=== PATIENT | female | born 1985 | race Caucasian/White ===

== ENCOUNTER 2017-04-12 12:56 | Inpatient (IN) | payer OTHER ==
[2017-04-12] MEDS ORDERED: OXYTOCIN 30 UNITS/LR 500 ML IV (13:02)
[2017-04-12] MEDS ORDERED: LIDOCAINE 1% (MPF) 30 ML INJ (13:06)
[2017-04-12] MEDS ORDERED: METHYLERGONOVINE 0.2 MG INJ IM (13:30)
[2017-04-12] MEDS ORDERED: LIDOCAINE 1% (MPF) 30 ML INJ INJ (13:30)
[2017-04-12] MEDS ORDERED: HYDROCODONE/APAP (5/325) TAB PO (13:30)
[2017-04-12] MEDS ORDERED: MISOPROSTOL 200 MCG TAB PR (13:30)
[2017-04-12] MEDS ORDERED: CARBOPROST 250 MCG INJ IM (13:30)
[2017-04-12] MEDS: LACTATED RINGER'S 1,000 ML IV (13:44)
[2017-04-12] MEDS: OXYTOCIN 30 UNITS/LR 500 ML IV ×2 (13:50→18:41)
[2017-04-12] MEDS: IBUPROFEN 600 MG TAB PO ×2 (14:15→23:44)
[2017-04-12 15:33] LABS: ADD MAN DIFF? NO
[2017-04-12 15:37] LABS: WHITE BLOOD COUNT 17.2 10^3/ul (4.8-10.8)
[2017-04-12 15:37] LABS: BASOPHILS % 0.2 % (0.0-2.0); HEMATOCRIT 33.9 % (37.0-47.0); HEMOGLOBIN 11.6 g/dl (12.0-16.0); LYMPHOCYTES # 1.1 10^3/ul (0.8-2.9); LYMPHOCYTES % 6.5 % (15.0-51.0); MEAN CORPUSCULAR HEMOGLOBIN 31.2 pg (29.0-33.0); MEAN CORPUSCULAR HGB CONC 34.2 g/dl (32.0-37.0); MEAN CORPUSCULAR VOLUME 91.1 fl (82.0-101.0); MEAN PLATELET VOLUME 10.4 fl (7.4-10.4); MONOCYTE # 0.8 10^3/ul (0.3-0.9); MONOCYTES % 4.4 % (0.0-11.0); NEUTROPHIL # 15.2 10^3/ul (1.6-7.5); NEUTROPHILS % 88.6 % (39.0-77.0); PLATELET COUNT 209 10^3/UL (140-415); RED BLOOD COUNT 3.72 10^6/ul (4.20-5.40); RED CELL DISTRIBUTION WIDTH 12.7 % (11.5-14.5)
[2017-04-12 16:02] LABS: INR 0.84; PROTIME 11.6 Sec (11.9-14.9); PT RATIO 0.9
[2017-04-12 16:03] LABS: PARTIAL THROMBOPLASTIN TIME 26.9 Sec (25.0-35.0)
[2017-04-12] MEDS ORDERED: LANOLIN 7 GM TUBE TOP (18:30)
[2017-04-12] MEDS ORDERED: DIBUCAINE 1% 30 GM OINT PR (18:30)
[2017-04-12] MEDS ORDERED: ONDANSETRON 4 MG INJ IV (18:30)
[2017-04-12] MEDS ORDERED: ACETAMINOPHEN 325 MG TAB PO (18:30)
[2017-04-12] MEDS: BENZOCAINE 20% 56 ML SPRAY TOP (18:37)
[2017-04-12] MEDS: OXYCODONE/ASPIRIN (4.88/325) TAB PO (18:37)
[2017-04-12] MEDS: WITCH HAZEL/GLYCERIN PAD PR (18:37)
[2017-04-12 19:00] LABS: AMPHETAMINE/METHAMPHETAMINE Negative (NEGATIVE); BARBITURATES Negative (NEGATIVE); BENZODIAZEPINES Negative (NEGATIVE); COCAINE Negative (NEGATIVE); OPIATES Negative (NEGATIVE)
[2017-04-12 19:13] LABS: CANNABINOIDS Negative (NEGATIVE)
[2017-04-12] MEDS: SENNA/DOCUSATE NA (8.6MG/50MG) TAB PO (20:56)
[2017-04-13] MEDS: IBUPROFEN 600 MG TAB PO ×4 (05:31→23:25)
[2017-04-13 08:01] LABS: ADD MAN DIFF? NO
[2017-04-13 08:05] LABS: BASOPHILS % 0.3 % (0.0-2.0); EOSINOPHILS # 0.1 10^3/ul (0.0-0.5); EOSINOPHILS % 0.5 % (0.0-7.0); HEMATOCRIT 32.7 % (37.0-47.0); HEMOGLOBIN 10.9 g/dl (12.0-16.0); LYMPHOCYTES # 1.8 10^3/ul (0.8-2.9); LYMPHOCYTES % 15.6 % (15.0-51.0); MEAN CORPUSCULAR HEMOGLOBIN 31.2 pg (29.0-33.0); MEAN CORPUSCULAR HGB CONC 33.3 g/dl (32.0-37.0); MEAN CORPUSCULAR VOLUME 93.7 fl (82.0-101.0); MEAN PLATELET VOLUME 10.4 fl (7.4-10.4); MONOCYTE # 0.6 10^3/ul (0.3-0.9); MONOCYTES % 5.6 % (0.0-11.0); NEUTROPHIL # 8.8 10^3/ul (1.6-7.5); NEUTROPHILS % 77.6 % (39.0-77.0); PLATELET COUNT 192 10^3/UL (140-415); RED BLOOD COUNT 3.49 10^6/ul (4.20-5.40); RED CELL DISTRIBUTION WIDTH 12.7 % (11.5-14.5)
[2017-04-13 08:05] LABS: WHITE BLOOD COUNT 11.3 10^3/ul (4.8-10.8)
[2017-04-13] MEDS: SENNA/DOCUSATE NA (8.6MG/50MG) TAB PO ×2 (09:00→21:00)
[2017-04-13] MEDS: HYDROCODONE/APAP (5/325) TAB PO (09:48)
[2017-04-13 15:06] LABS: RAPID PLASMA REAGIN NONREACTIVE (NR)
[2017-04-13] MEDS: MEASLES,MUMPS,RUBELLA VACCINE INJ SC* (17:46)
[2017-04-14] MEDS: HYDROCODONE/APAP (5/325) TAB PO (00:22)
[2017-04-14] MEDS: IBUPROFEN 600 MG TAB PO ×2 (05:35→11:54)
[2017-04-14] MEDS ORDERED: MEASLES,MUMPS,RUBELLA VACCINE INJ SC* (09:00)
[2017-04-14] MEDS: SENNA/DOCUSATE NA (8.6MG/50MG) TAB PO (09:00)
[2017-04-14] MEDS: OXYCODONE/ASPIRIN (4.88/325) TAB PO (11:53)
[2017-04-14] MEDS: WITCH HAZEL/GLYCERIN PAD PR (11:56)
[2017-04-14] MEDS: BENZOCAINE 20% 56 ML SPRAY TOP (11:56)
== END 2017-04-14 18:19 | disposition home or self-care (01) | DRG 775 ==
LOC: L-D 12:56 → PP1 17:51
PROC: 10E0XZZ Delivery of Products of Conception, External Approach (ICD-10-PCS; principal; 2017-04-12)
PROC: 0HQ9XZZ Repair Perineum Skin, External Approach (ICD-10-PCS; 2017-04-12)
DX: O70.0 First degree perineal laceration during delivery (principal); Z37.0 Single live birth; Z3A.38 38 weeks gestation of pregnancy
CPT/HCPCS: 80307; 85025; 85610; 85730; 86592; 86870; 86885; 86900; 86901; 99464